=== PATIENT | female | born 1985 | race Caucasian/White ===

== ENCOUNTER 2017-10-01 10:19 | Emergency (ER) | payer OTHER ==
[~2017-10-01] VITALS: Ht 167.6 cm; Wt 93.0 kg
--- OUTSIDE RECORDS SUMMARY | 2017-10-01 10:22 | External Medical Summary Rpt | CCD ---
Author Author , JOHN LOPEZ Address Unknown Phone [email or web address] Purpose Continuity of Care Document - through 2016 Problems Code Diagnosis DOS Provider Status S91.319A LACERATION WITHOUT FOREIGN BODY, UNSP FOOT, INIT ENCNTR
--- OUTSIDE RECORDS SUMMARY | 2017-10-01 10:22 | External Medical Summary Rpt | CCD ---
Author Author , JOHN LOPEZ Address Unknown Phone Purpose Continuity of Care Document - through 2016 Problems Code Diagnosis DOS Provider Status S91.319A LACERATION WITHOUT FOREIGN BODY, UNSP FOOT, INIT ENCNTR
--- OUTSIDE RECORDS SUMMARY | 2017-10-01 10:22 | External Medical Summary Rpt | CCD ---
Author Author [employer] Organization [employer] Address Unknown Phone Unavailable Purpose Continuity of Care Document - through 2016
--- OUTSIDE RECORDS SUMMARY | 2017-10-01 10:23 | External Medical Summary Rpt ---
Author Author JOHN Hernandez, [facility] [employer] Organization [employer] Address Unknown Phone Unavailable
--- OUTSIDE RECORDS SUMMARY | 2017-10-01 10:23 | External Medical Summary Rpt | CCD ---
Demographics Preferred Language Ethiopian Marital Status Unknown Holiness Affiliation Unknown Race Unknown Ethnic Group Unknown Author Author JOHN Address Unknown Phone Immunization No patient found.
--- OUTSIDE RECORDS SUMMARY | 2017-10-01 10:23 | External Medical Summary Rpt | CCD ---
Demographics Preferred Language Luxembourger Marital Status Unknown Hindu Affiliation Unknown Race Unknown Ethnic Group Unknown Author Author JOHN Address Unknown Phone Immunization No patient found.
--- NOTE | 2017-10-01 10:40 | Urgent Treatment Center Report ---
History of Present Issue Date/Time Seen by Provider 10/01/17 1028 Visit Reason Pt arrived:Walked Presenting Problem:C/O COUGH AND CHEST CONGESTTON SINCE THIS MORNING Location if Accident: Onset of symptoms date/time:/ or onset unknown for:MEDICAL HX UNKNOWN Have you (or family members/close friends) recently traveled outside the [place]? N If Yes, where/when: Have you had exposure to infectious disease within the past month? TB? Other? Specify: State that she began having cough and chest congestion this morning State that she frequently gets bronchititis when the weather changes States that she woke up not feeling well and has continued to get worse State that she wanted to come in and get checked before it got to bad or turned into pneumonia ALLERGIES Coded Allergies: Sulfa (Sulfonamide Antibiotics) (07/29/17) sulfamethoxazole (From [facility]) (07/29/17) trimethoprim (From [facility]) (07/29/17) History Medical History General CAD? No Angina: No [place]: No Hypertension? No Hyperlipidemia? No CHF? No DVT? No PE? No COPD? No Asthma? No Anemia? No GERD? No Gastric ulcers? No GI Bleed? No Hernia? No Thyroid Problems? No Hypothyroidism? No CVA? No Seizures? No Diabetes? No Renal Insuffiency? No UTI? No Stones? No BPH? No GB Disease: No Nephritic Syndrome? No Asplenia? No Hepatitis? No Sickle Cell Disease? No Arthritis? No Migraines? No Cataracts? No Glaucoma? No MRSA? No HIV? No TB? No Anxiety? No Depression? No Immunization HX DT/Tetanus 5-10 Years Ago Surgical Hx Previous Surgery?N Social History Smoking Hx Smoker: Never Smoker Tobacco: No Alcohol Alcohol: No Review of Systems All Other Systems Reviewed and Negative Respiratory cough, denies shortness of breath, denies wheezing Cardiovascular denies chest pain Physical Exam Vital Signs Vital Signs Date Time Temp Pulse Resp B/P Pulse O2 O2 Flow FiO2 Ox Delivery Rate 10/01 1059 98.0 68 20 148/80 99 10/01 1025 98.0 68 20 148/80 99 General Appearance normal appearance, WD/WN, no apparent distress Ear, Nose, Throat normal ENT inspection Respiratory Status Yes: trachea midline, chest symmetrical, non tender chest. No: respiratory distress. Lung Sounds bilateral: normal breath sounds, lungs clear. Cardiovascular normal exam, regular rate/rhythm Neurologic alert, normal exam, oriented x 3 Medical Decision Making LABS/Meds/Orders Pt receiving controlled substance in ED? No Results/Orders Current Medication Orders Sig/Mikaela Start time Last Medication Dose Route Stop Time Status Admin Methylprednisolone 125 MG ONCE ONE 10/01 1100 DCD 10/01 Sodium Succinate IM 10/01 1101 1104 Methylprednisolone 0 .STK-MED ONE 10/01 1057 DC Sodium Succinate .ROUTE XRAY/CT/US XRAY/CT/US XRAY chest XR interpretation by reviewed by me Xray Results questionable area on left, questionable infiltrate/artifact Progress [facility] Progress Notes Comment Patient contacted per Radiology that she needed to follow up with family doctor for further evaluation and treatment. Departure Departure Time of Disposition 1051 Disposition DC Home or Self Care(routine) Clinical Impression Primary Impression: Upper respiratory infection Qualifiers: URI type: unspecified URI Qualified Code: J06.9 - Acute upper respiratory infection, unspecified Condition STABLE Patient Instructions Cough, Sore Throat Additional Instructions * Monitor Temp. Tylenol and/or Ibuprofen as needed. ER if fever is no less than 101 despite alternating Tylenol and Ibuprofen * Encourage fluids, water, Gatorade, powerade, pedialyte if infant/toddler/or child * Warm salt water gargles for throat irritation *Warm fluids *Sore throat lozenges *Sleep elevated *humidifier or vaporizer Lots of rest Increase fluids, water, Gatorade, powerade Discharge Counseling Counseled pt/family regarding diagnosis, test results, home care, follow up needs Prescriptions Current Visit Scripts Azithromycin (Zithromycin (Z-LAILA) 250MG Tab) 250 MG PO DAILY #6 TAB TAKE TWO (2) TABLETS ON DAY 1, THEN ONE (1) TABLET DAY #2 THRU #5 Albuterol Sulfate (Proair Hfa) 2 PUFFS IH QID #1 INH Benzonatate (Tessalon Perle) 100 MG PO TID #15 SGL at 1329
[2017-10-01] MEDS ORDERED: ZITHROMAX Z PA250 MG PO (10:51)
[2017-10-01] MEDS ORDERED: PROAIR HFA0.09 MG/AC IH (10:52)
[2017-10-01] MEDS ORDERED: MEDROL 4MG. DOSE4 MG PO (10:52)
[2017-10-01] MEDS ORDERED: TESSALON PERLE100 M1 PO (10:52)
[2017-10-01 10:59] VITALS: BP 148/80
--- NOTE | 2017-10-01 13:01 | RADIOLOGY REPORT PS360 ---
CHEST(2 VIEWS-NOT PORTABLE) HISTORY: COUGH ORDERING PHYSICIAN: BIJAL SCOTT APRN PATIENT AGE: 31 years COMPARISON: None available FINDINGS: The cardiomediastinal silhouette and pulmonary vascularity are within normal limits. There is an oval area of increased density in the left perihilar region overlying the posterior aspect of the left seventh rib. While this could be due to summation artifact, one cannot the possibility of underlying parenchymal opacity. Follow-up suggested to confirm resolution or stability. The remaining lungs are clear. No acute bony anomalies. IMPRESSION: Ill-defined oval 3.5 x 1.6 cm opacity in the left midlung which could be due to artifact versus an area of atelectasis or infiltrate. Follow-up suggested
== END 2017-10-01 10:59 | disposition home or self-care (01) ==
LOC: UTC 10:19
DX: J06.9 Acute upper respiratory infection, unspecified (principal); Z88.2 Allergy status to sulfonamides